=== PATIENT | male | born 1990 | race Caucasian/White ===

== ENCOUNTER 2020-02-04 11:22 | Emergency (ER) | payer SELFPAY ==
[2020-02-04] MEDS ORDERED: Sodium Chloride 0.9% 10 ML SDV IV PRN (11:33)
[2020-02-04] MEDS ORDERED: Ketorolac 30 MG/ML SDV IVPUSH ONE (11:33)
[2020-02-04] MEDS ORDERED: Sodium Chloride 0.9% 2.5 ML Syringe FLUSH PRN (11:33)
[2020-02-04] MEDS ORDERED: Sodium Chloride 0.9% 10 ML Syringe FLUSH PRN (11:33)
[2020-02-04] MEDS ORDERED: Diphtheria,Pertussis(Acell),Tetanus Vaccine 0.5 ML Syringe IM ONE (11:35)
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
[2020-02-04] MEDS ORDERED: Sodium Chloride 0.9% 1,000 ML IV SCH (11:45)
--- NOTE | 2020-02-04 11:58 | CT ---
CT cervical spine Technique: Multiple axial sections were obtained from above C1 inferiorly to the top of T3. Reconstructed sagittal and coronal images were reviewed. Comparison: No prior cervical spine imaging is available. Findings: Vertebral body heights and disc spaces are fairly well preserved. Vertebral bodies and posterior arches are intact with no fracture being seen. Minimal anterior endplate osteophytes are seen. No abnormal subluxation is appreciated. No bony central or bony neural foraminal stenosis is seen. Retention cyst is noted within the right maxillary sinus. Mild mucosal thickening is seen within the visualized ethmoid and maxillary sinuses. These findings are most likely chronic. Reconstructed AP view shows mild degenerative spurring within the uncovertebral joints at C5-6 and C6-7. Impression: 1. Minimal degenerative change. 2. Probable mild chronic sinus disease. 3. No acute abnormality is appreciated on CT study of the cervical spine. Diagnostic code #2 This report was dictated in MDT
--- NOTE | 2020-02-04 12:03 | CT ---
Head CT Technique: Multiple axial sections through the brain were obtained. Intravenous contrast was not utilized. Comparison: No prior intracranial imaging is available. Findings: Ventricles along with basal cisterns and sulci over the convexities are within normal limits for the patient's age. Artifact is noted on this exam which appears to be machine related. No definite abnormal parenchymal densities are seen. No evidence of intracranial hemorrhage. No midline shift or mass-effect is seen. Bone window settings were reviewed. No acute calvarial finding is seen. No midline shift or mass-effect is appreciated. Chronic appearing sinus findings are noted within the maxillary, ethmoid and frontal sinuses. Mastoid sinuses are clear. Impression: 1. Artifact. 2. Within the slight limitations of the artifact, nothing acute is appreciated on noncontrast head CT study. 3. Mild chronic appearing paranasal sinus findings. Diagnostic code #2 This report was dictated in MDT
[2020-02-04 12:10] LABS: BLOOD UREA NITROGEN,BUN 20 mg/dL (7.0-18.0); CARBON DIOXIDE,CO2 28.4 mmol/L (21.0-32.0); CHLORIDE,CL 103 mmol/L (98-107); GLUCOSE RANDOM 90 mg/dL (74-106); POTASSIUM,K 3.9 mmol/L (3.5-5.1); SODIUM,NA 140 mmol/L (136-148)
[2020-02-04] MEDS ORDERED: Iopamidol 755 Mg/ML 100 ML Bottle IVPUSH STA (12:14)
[2020-02-04] MEDS ORDERED: Morphine 4 MG/ML Syringe IVPUSH ONE ×2 (12:16→13:50)
--- NOTE | 2020-02-04 12:20 | CT ---
CT chest Technique: Multiple axial sections through the chest were obtained. Intravenous contrast was utilized. Findings: Mediastinum and hilar region show no adenopathy. Aorta appears within normal limits. No pericardial thickening is seen. Visualized upper abdominal structures show no discrete abnormality. Fracture is noted within the vertebral body of T7. Anterior wedging is noted. Retrolisthesed posterior vertebral line is noted by about 4 mm. Diffuse soft tissue swelling is noted around this area within the paravertebral soft tissues. Fracture is also noted within the left L1 transverse process. Some portions of this fracture show sclerosis in this is felt to be subacute in age. Fractures are noted within the anterior right 4th rib, lateral 6th, 7th and 8th ribs which show slight callus and are also felt to be subacute. No acute rib fracture is appreciated. Impression: 1. Acute vertebral body fracture of T7. Mild retrolisthesis of the posterior vertebral line is seen. Diffuse soft tissue swelling within the paravertebral soft tissues. 2. Subacute Fractures within the left L1 transverse process, right 4th, 6th, 7th and 8th ribs. 3. No other acute finding is seen on CT study of the chest. Diagnostic code #3 This report was dictated in MDT
--- NOTE | 2020-02-04 12:23 | CT ---
CT abdomen and pelvis Technique: Multiple axial sections were obtained from above the dome of the diaphragm inferiorly through the pubic symphysis. Intravenous contrast was utilized. No oral contrast has been given. Findings: Subacute right-sided rib fractures are partially visualized. Liver contains no focal abnormality. Spleen appears within normal limits. Adrenal glands show no nodule. Kidneys show symmetric contrast enhancement. Small low density findings are seen within the left kidney which are too small to characterize by Hounsfield unit measurements but most likely represent small cysts. Several lesions are also noted within the right kidney which likely represent additional small cortical cysts. Pancreas is within normal limits. Gallbladder contains no calcified gallstones. Aorta shows no aneurysm. No retroperitoneal adenopathy or mesenteric abnormalities are seen. No pelvic mass or adenopathy is appreciated. Appendix is seen which is normal. Bone window settings were reviewed. Subacute fracture noted within the left L1 transverse process. Impression: 1. Several subacute rib fractures on the right side. 2. Subacute fracture within the left L1 transverse process. 3. Nothing acute is appreciated on CT study of the abdomen and pelvis. Diagnostic code #3 This report was dictated in MDT
== END 2020-02-04 14:38 ==
LOC: MW.ED 11:22
DX: S22.069A Unspecified fracture of T7-T8 vertebra, initial encounter for closed fracture (principal); S70.312A Abrasion, left thigh, initial encounter; S70.311A Abrasion, right thigh, initial encounter; S00.511A Abrasion of lip, initial encounter; V86.56XA Driver of dirt bike or motor/cross bike injured in nontraffic accident, initial encounter
CPT/HCPCS: 36415; 70450; 70450-26; 71260; 71260-26; 72125; 72125-26; 74177; 74177-26; 80053; 81001; 85025; 90471; 90715; 96374; 96375; 96376; 99285; 99285-25; J1885; J2270; J7030; Q9967

== ENCOUNTER 2022-02-04 09:30 | Day surgery (SDC) | payer MEDICAID ==
[~2022-02-04 09:30] MED LIST: Lactated Ringers 1,000 ML IV SCH; Lidocaine 2% 5 ML SDV ONE; Propofol 200 MG/20 ML SDV ONE; fentaNYL 100 MCG/2 ML SDV ONE
== END 2022-02-04 12:40 | disposition home or self-care (01) ==
LOC: MW.SDS 09:30
PROVIDERS: ATTEND Surgery
DX: K92.1 Melena (principal); K64.8 Other hemorrhoids; K59.00 Constipation, unspecified; F41.9 Anxiety disorder, unspecified; F32.A Depression, unspecified; Z87.891 Personal history of nicotine dependence; Z79.899 Other long term (current) drug therapy; Z79.891 Long term (current) use of opiate analgesic; Z98.890 Other specified postprocedural states
CPT/HCPCS: 00811; J2704; J3010; J7120

== ENCOUNTER 2023-08-17 02:01 | Emergency (ER) | payer MEDICAID ==
[2023-08-17] MEDS ORDERED: Sodium Chloride 0.9% 2.5 ML Syringe FLUSH PRN (03:11)
[2023-08-17] MEDS ORDERED: Sodium Chloride 0.9% 10 ML Syringe FLUSH PRN (03:11)
[2023-08-17] MEDS ORDERED: Baclofen 10 MG Tab PO ONE (03:35)
[2023-08-17] MEDS ORDERED: Lidocaine 4% 1 each Patch TOP PRN (03:36)
[2023-08-17] MEDS ORDERED: Ketorolac 30 MG/ML SDV IVPUSH ONE (03:36)
[2023-08-17 03:37] LABS: BASOPHILS ABSOLUTE AUTO 0.03 K/uL (0.00-0.20); BASOPHILS PERCENT AUTO 0.2 % (0.0-1.0); EOSINOPHILS PERCENT AUTO 1.9 % (0.0-6.0); HEMATOCRIT 39.9 % (42.0-52.0); HEMOGLOBIN 13.3 g/dL (14.0-18.0); IMMATURE GRAN ABSOLUTE AUTO 0.04 K/uL (0.00-0.05); IMMATURE GRAN PERCENT AUTO 0.3 % (0.0-0.4); LYMPHOCYTES ABSOLUTE AUTO 3.72 K/uL (1.00-4.80); LYMPHOCYTES PERCENT AUTO 23.7 % (24.0-44.0); MEAN CORPUSCULAR HEMOGLOBIN 29.3 pg (28.0-32.0); MEAN CORPUSCULAR HGB CONC 33.3 g/dL (32.0-36.0); MEAN CORPUSCULAR VOLUME 87.9 fL (83.0-99.0); MEAN PLATELET VOLUME 8.5 fL (9.4-12.4); MONOCYTES ABSOLUTE AUTO 0.69 K/uL (0.00-0.80); MONOCYTES PERCENT AUTO 4.4 % (0.0-8.0); NEUTROPHILS PERCENT AUTO 69.5 % (41.0-71.0); PLATELET COUNT,PLT 280 K/uL (150-400); RED BLOOD CELL COUNT 4.54 M/uL (4.52-5.90); WHITE BLOOD CELL COUNT,WBC 15.68 K/uL (3.9-11.3)
[2023-08-17] MEDS ORDERED: oxyCODONE 5 MG Tab PO ONE ×2 (03:38→06:24)
[2023-08-17 04:13] LABS: A/G RATIO 0.9 (0.9-1.6); ALBUMIN 3.9 g/dL (3.4-5.0); BILIRUBIN TOTAL 0.2 mg/dL (0.2-1.0); CALCIUM 9.1 mg/dL (8.5-10.1); CARBON DIOXIDE,CO2 30.9 mmol/L (21.0-32.0); CREATININE 0.8 mg/dL (0.8-1.3); EST CRCL DRUG DOSING (CG) 95.99 mL/min; POTASSIUM,K 3.2 mmol/L (3.5-5.1); PROTEIN TOTAL,TP 8.1 g/dL (6.4-8.2)
[2023-08-17 05:21] LABS: APPEARANCE,URINE CLEAR; BILIRUBIN,URINE NEGATIVE (NEGATIVE); COLOR,URINE YELLOW; GLUCOSE,URINE NEGATIVE (NEGATIVE); KETONES,URINE NEGATIVE (NEGATIVE); LEUKOCYTE ESTERASE,URINE NEGATIVE (NEGATIVE); NITRITE,URINE NEGATIVE (NEGATIVE); OCCULT BLOOD,URINE NEGATIVE (NEGATIVE); PROTEIN,URINE NEGATIVE (NEGATIVE); UROBILINOGEN,URINE 0.2 EU/dL (<2.0)
[2023-08-17 05:35] LABS: BACTERIA,URINE NOT SEEN (NEGATIVE); EPITHELIAL CELLS,URINE NOT SEEN (NONE-FEW); RBC,URINE NONE SEEN (0-2/HPF); WBC,URINE NONE SEEN (0-5/HPF)
== END 2023-08-17 07:02 | disposition home or self-care (01) ==
LOC: MW.ED 02:01
DX: M54.6 Pain in thoracic spine (principal); K21.9 Gastro-esophageal reflux disease without esophagitis
CPT/HCPCS: 36415; 72070; 72100; 80053; 81001; 85025; 96374; 99283; A9270; J1885; J3490; 99284